=== PATIENT | female | born 1935 | race Caucasian/White ===

== ENCOUNTER 2022-02-26 00:52 | Inpatient (IN) | payer OTHER, MEDICAID ==
[~2022-02-26] VITALS: Ht 134.6 cm; Wt 76.2 kg
[~2022-02-26 00:52] MED LIST: ASPI-518 PO; LOVA20TA2 PO; MECL-159 PO; METO-385 PO; MONT-39 PO; SPIR50TA5 PO
[2022-02-26] MEDS ORDERED: MAGNESIUM 2 G PREMIX 50 ML IV STA (01:03)
[2022-02-26] MEDS ORDERED: IPRATROPIUM BROMIDE (0.02%) 0.5MG/2.5ML NEB HHN STA (01:03)
[2022-02-26] MEDS ORDERED: ALBUTEROL (0.083%) 2.5MG/3ML NEB HHN STA (01:03)
[2022-02-26] MEDS ORDERED: METHYLPREDNISOLONE SOD SUCC 125 MG/2 ML VIAL IV STA (01:03)
[2022-02-26 01:23] LABS: HEMATOCRIT 43.9 % (36.0-48.0); HEMOGLOBIN 14.6 g/dL (12.0-16.0); MEAN CORPUSCULAR VOLUME 89.8 fL (81.0-99.0); PLATELET 166 x1000/uL (130-400); RED BLOOD CELL COUNT 4.89 mill/uL (4.2-5.4); RED CELL DISTRIBUTION WIDTH 14.1 % (11.6-14.6)
[2022-02-26 01:49] LABS: CHLORIDE 108 mEq/L (98-107)
[2022-02-26] MEDS ORDERED: ONDANSETRON HCL 4MG/2ML INJ IV PRN (10:15)
[2022-02-26] MEDS ORDERED: CLONIDINE 0.1MG TABLET PO PRN (10:15)
[2022-02-26] MEDS: ASPIRIN 81MG TABLET PO SCH (10:42)
[2022-02-26] MEDS: PREDNISONE 20MG TABLET PO SCH (10:42)
[2022-02-26] MEDS: SPIRONOLACTONE 50MG TABLET PO SCH (10:43)
[2022-02-26 10:52] LABS: BG CARBOXYHEMOGLOBIN 0.4 % (0.5-1.5); BG DEOXYHEMOGLOBIN 20.2 % (0.0-5.0); BG FRACTION INSPIRED OXYGEN 21; BG HCO3 ACT 21.9 mmol/L (22.0-26.0); BG METHEMOGLOBIN 0.4 % (0.0-1.5); BG OXYGEN SATURATION 79.6 % (92.0-98.5); BG PH 7.368 (7.350-7.450); BG PO2 42.7 mmHg (75.0-100.0); BG SAMPLE SITE RIGHT RADIAL; BG TOTAL HEMOGLOBIN 14.4 g/dL (12.0-18.0); BG VENT MODE ROOM AIR
[2022-02-26] MEDS ORDERED: ENOXAPARIN 40MG/0.4ML SYR SUBCUT SCH (11:00)
[2022-02-26] MEDS ORDERED: MAGNESIUM/ALUMINUM HYDROXIDE/SIMETHICONE 30ML UDC PO PRN (11:15)
[2022-02-26] MEDS ORDERED: ACETAMINOPHEN 325MG TABLET PO PRN (11:15)
[2022-02-26] MEDS ORDERED: HYDROCODONE/ACETAMINOPHEN 5/325MG TABLET PO PRN (11:15)
[2022-02-26] MEDS ORDERED: NALOXONE HCL 0.4MG/ML VIAL IV PRN (11:45)
[2022-02-26 12:00] VITALS: BP 126/82
[2022-02-26] MEDS ORDERED: CALC-1042 MT (12:04)
[2022-02-26] MEDS ORDERED: TOPUD MT (12:04)
[2022-02-26] MEDS: DILTIAZEM HCL 60MG TABLET PO SCH ×3 (12:24→23:37)
[2022-02-26] MEDS: SODIUM CHLORIDE 0.9% INJ 3ML FLUSH IVF SCH ×2 (12:24→21:22)
[2022-02-26] MEDS: GUAIFENESIN 200MG/10ML SUGAR FREE UDC PO PRN ×3 (12:24→21:21)
[2022-02-26 12:28] LABS: BG BASE EXCESS -0.4 mmol/L (-2.0-2.0); BG CARBOXYHEMOGLOBIN 0.4 % (0.5-1.5); BG DEOXYHEMOGLOBIN 1.4 % (0.0-5.0); BG FRACTION INSPIRED OXYGEN 28; BG HCO3 ACT 23.3 mmol/L (22.0-26.0); BG METHEMOGLOBIN 0.3 % (0.0-1.5); BG OXYGEN SATURATION 98.6 % (92.0-98.5); BG OXYHEMOGLOBIN 97.9 % (94.0-97.0); BG PCO2 35.5 mmHg (35.0-45.0); BG PH 7.435 (7.350-7.450); BG SAMPLE SITE LEFT RADIAL; BG VENT MODE NASAL CANNULA
[2022-02-26] MEDS ORDERED: ENOXAPARIN 60MG/0.6ML SYR SUBCUT SCH (12:30)
[2022-02-26 13:14] VITALS: BP 126/82
[2022-02-26 16:00] VITALS: BP 109/44
[2022-02-26 16:49] LABS: HDL CHOLESTEROL 52 mg/dL (40-59); LDL CHOLESTEROL 72 mg/dL (5-100)
[2022-02-26] MEDS: MONTELUKAST SODIUM 10MG TABLET PO SCH (17:04)
[2022-02-26 18:05] LABS: CLARITY URINE CLEAR (CLEAR); COLOR URINE YELLOW (YELLOW); KETONES URINE TRACE (NEGATIVE); LEUKOCYTE ESTERASE URINE NEGATIVE (NEGATIVE); NITRITE URINE NEGATIVE (NEGATIVE); OCCULT BLOOD URINE NEGATIVE (NEGATIVE); PH URINE 5.5 (4.5-8.0); PROTEIN URINE 2+ (NEGATIVE); SPECIFIC GRAVITY URINE 1.023 (1.005-1.030); UROBILINOGEN URINE 0.2 E.U./dL (0.2-1.0)
[2022-02-26 18:19] LABS: PROTHROMBIN TIME 10.8 sec (9.6-11.0)
[2022-02-26 20:00] VITALS: BP 136/55
[2022-02-26] MEDS: ATORVASTATIN CALCIUM 10MG TABLET PO SCH (21:21)
[2022-02-26] MEDS: IPRATROPIUM/ALBUTEROL 0.5-3(2.5)MG/3ML NEB HHN PRN (22:09)
[2022-02-26] MEDS: ENOXAPARIN 100MG/ML SYR SUBCUT SCH (23:38)
[2022-02-27] VITALS: BP 147/79
[2022-02-27 04:00] VITALS: BP 126/65
[2022-02-27] MEDS: GUAIFENESIN 200MG/10ML SUGAR FREE UDC PO PRN ×2 (06:28→22:27)
[2022-02-27] MEDS: OMEPRAZOLE 20MG CAPSULE EXTENDED RELEASE PO SCH (06:29)
[2022-02-27] MEDS: DILTIAZEM HCL 60MG TABLET PO SCH (06:29)
[2022-02-27] MEDS: SODIUM CHLORIDE 0.9% INJ 3ML FLUSH IVF SCH ×3 (06:29→22:24)
[2022-02-27 07:21] LABS: BASOPHILS % 0.1 % (0.0-2.0); HEMATOCRIT. 39.9 % (36.0-48.0); HEMOGLOBIN. 13.3 g/dL (12.0-16.0); LYMPHOCYTES % 7.8 % (20.0-50.0); MEAN CORPUSCULAR HEMOGLOBIN 29.7 pg (28.0-32.0); MEAN CORPUSCULAR VOLUME 89.1 fL (81.0-99.0); MEAN PLATELET VOLUME 10.4 fl (7.4-10.4); MONOCYTES % 5.8 % (2.0-8.0); NEUTROPHILS % 86.3 % (40.0-76.0); PLATELET 153 x1000/uL (130-400); RED BLOOD CELL COUNT 4.48 mill/uL (4.2-5.4); RED CELL DISTRIBUTION WIDTH 14.3 % (11.6-14.6)
[2022-02-27 07:51] LABS: CHLORIDE 106 mEq/L (98-107)
[2022-02-27 08:00] VITALS: BP 152/63
[2022-02-27 08:07] LABS: HDL CHOLESTEROL 52 mg/dL (40-59); LDL CHOLESTEROL 80 mg/dL (5-100); PHOSPHORUS 3.7 mg/dL (2.5-4.9); T4 FREE 1.85 ng/dL (0.76-1.46)
[2022-02-27] MEDS: PREDNISONE 20MG TABLET PO SCH (08:58)
[2022-02-27] MEDS: ASPIRIN 81MG TABLET PO SCH (08:58)
[2022-02-27] MEDS: SPIRONOLACTONE 50MG TABLET PO SCH (08:58)
[2022-02-27] MEDS ORDERED: METOPROLOL SUCCINATE 50MG ER TABLET PO SCH (09:00)
[2022-02-27] MEDS: ENOXAPARIN 100MG/ML SYR SUBCUT SCH (12:33)
[2022-02-27] MEDS: DILTIAZEM HCL 90MG TABLET PO SCH ×2 (12:36→18:43)
[2022-02-27 16:00] VITALS: BP 141/76
[2022-02-27] MEDS ORDERED: DILT360C27 MT (18:29)
[2022-02-27] MEDS ORDERED: APIX5TAB MT (18:29)
[2022-02-27] MEDS ORDERED: P20 MT (18:29)
[2022-02-27] MEDS: METHYLPREDNISOLONE SOD SUCC 40 MG/ML VIAL IV SCH ×2 (18:43→22:24)
[2022-02-27] MEDS: MONTELUKAST SODIUM 10MG TABLET PO SCH (18:43)
[2022-02-27 20:00] VITALS: BP 158/69
[2022-02-27] MEDS: IPRATROPIUM/ALBUTEROL 0.5-3(2.5)MG/3ML NEB HHN PRN (20:38)
[2022-02-27] MEDS: ENOXAPARIN 80MG/0.8ML SYR SUBCUT SCH ×2 (21:00→22:23)
[2022-02-27] MEDS: ATORVASTATIN CALCIUM 10MG TABLET PO SCH (22:24)
[2022-02-28] VITALS: BP 166/87
[2022-02-28] MEDS: DILTIAZEM HCL 90MG TABLET PO SCH ×3 (00:08→17:30)
[2022-02-28 04:00] VITALS: BP 177/80
[2022-02-28] MEDS: SODIUM CHLORIDE 0.9% INJ 3ML FLUSH IVF SCH ×3 (05:43→21:21)
[2022-02-28] MEDS: METHYLPREDNISOLONE SOD SUCC 40 MG/ML VIAL IV SCH ×3 (05:43→21:21)
[2022-02-28 08:00] VITALS: BP 124/78
[2022-02-28] MEDS: OMEPRAZOLE 20MG CAPSULE EXTENDED RELEASE PO SCH (08:58)
[2022-02-28] MEDS: SPIRONOLACTONE 50MG TABLET PO SCH (08:58)
[2022-02-28] MEDS: ASPIRIN 81MG TABLET PO SCH (08:58)
[2022-02-28] MEDS: ENOXAPARIN 80MG/0.8ML SYR SUBCUT SCH (08:59)
[2022-02-28] MEDS: LOSARTAN POTASSIUM 25 MG TABLET PO SCH (11:27)
[2022-02-28 12:00] VITALS: BP 147/62
[2022-02-28 16:00] VITALS: BP 137/55
[2022-02-28] MEDS: APIXABAN 5 MG TABLET PO SCH (17:30)
[2022-02-28] MEDS: MONTELUKAST SODIUM 10MG TABLET PO SCH (17:30)
[2022-02-28 20:00] VITALS: BP 111/69
[2022-02-28 21:06] LABS: HEMATOCRIT. 40.8 % (36.0-48.0); HEMOGLOBIN. 13.5 g/dL (12.0-16.0); LYMPHOCYTES % 8.9 % (20.0-50.0); MEAN CORPUSCULAR HEMOGLOBIN 30.2 pg (28.0-32.0); MEAN CORPUSCULAR VOLUME 91.4 fL (81.0-99.0); MEAN PLATELET VOLUME 10.5 fl (7.4-10.4); MONOCYTES % 4.1 % (2.0-8.0); PLATELET 168 x1000/uL (130-400); RED BLOOD CELL COUNT 4.47 mill/uL (4.2-5.4); RED CELL DISTRIBUTION WIDTH 14.9 % (11.6-14.6)
[2022-02-28 21:20] LABS: CHLORIDE 106 mEq/L (98-107)
[2022-02-28] MEDS: ATORVASTATIN CALCIUM 10MG TABLET PO SCH (21:21)
[2022-02-28 21:35] LABS: PHOSPHORUS 2.4 mg/dL (2.5-4.9)
[2022-03-01] VITALS: BP 129/56
[2022-03-01] MEDS: GUAIFENESIN 200MG/10ML SUGAR FREE UDC PO PRN ×2 (03:13→21:08)
[2022-03-01 04:00] VITALS: BP 130/54
[2022-03-01] MEDS: SODIUM CHLORIDE 0.9% INJ 3ML FLUSH IVF SCH ×3 (06:16→21:02)
[2022-03-01] MEDS: DILTIAZEM HCL 90MG TABLET PO SCH ×4 (06:16→17:23)
[2022-03-01] MEDS: METHYLPREDNISOLONE SOD SUCC 40 MG/ML VIAL IV SCH ×3 (06:16→21:01)
[2022-03-01 07:23] VITALS: BP 153/58
[2022-03-01 07:37] LABS: BASOPHILS % 0.1 % (0.0-2.0); HEMATOCRIT. 37.7 % (36.0-48.0); HEMOGLOBIN. 12.8 g/dL (12.0-16.0); MEAN CORPUSCULAR HEMOGLOBIN 30.3 pg (28.0-32.0); MEAN CORPUSCULAR VOLUME 89.1 fL (81.0-99.0); MONOCYTES % 4.3 % (2.0-8.0); NEUTROPHILS % 84.6 % (40.0-76.0); PLATELET 139 x1000/uL (130-400); RED BLOOD CELL COUNT 4.23 mill/uL (4.2-5.4); RED CELL DISTRIBUTION WIDTH 14.5 % (11.6-14.6)
[2022-03-01 07:43] LABS: CHLORIDE 107 mEq/L (98-107)
[2022-03-01] MEDS: ASPIRIN 81MG TABLET PO SCH (07:59)
[2022-03-01] MEDS: LOSARTAN POTASSIUM 25 MG TABLET PO SCH (07:59)
[2022-03-01] MEDS: SPIRONOLACTONE 50MG TABLET PO SCH (08:00)
[2022-03-01] MEDS: APIXABAN 5 MG TABLET PO SCH ×2 (08:00→17:29)
[2022-03-01] MEDS: FAMOTIDINE 20MG TABLET PO SCH (08:00)
[2022-03-01 12:07] VITALS: BP 121/45
[2022-03-01 16:00] VITALS: BP 136/45
[2022-03-01] MEDS: MONTELUKAST SODIUM 10MG TABLET PO SCH (17:29)
[2022-03-01 20:00] VITALS: BP 176/94
[2022-03-01] MEDS: ATORVASTATIN CALCIUM 10MG TABLET PO SCH (21:01)
[2022-03-02] VITALS: BP 151/71
[2022-03-02] MEDS: DILTIAZEM HCL 90MG TABLET PO SCH ×2 (00:22→05:23)
[2022-03-02 04:00] VITALS: BP 129/47
[2022-03-02] MEDS: METHYLPREDNISOLONE SOD SUCC 40 MG/ML VIAL IV SCH (05:22)
[2022-03-02] MEDS: SODIUM CHLORIDE 0.9% INJ 3ML FLUSH IVF SCH (05:22)
[2022-03-02] MEDS: FAMOTIDINE 20MG TABLET PO SCH ×2 (05:23→08:39)
[2022-03-02 08:02] VITALS: BP 143/58
[2022-03-02] MEDS: SPIRONOLACTONE 50MG TABLET PO SCH (08:39)
[2022-03-02] MEDS: LOSARTAN POTASSIUM 25 MG TABLET PO SCH (08:39)
[2022-03-02] MEDS: ASPIRIN 81MG TABLET PO SCH (08:39)
[2022-03-02] MEDS: APIXABAN 5 MG TABLET PO SCH (08:39)
[2022-03-02 09:07] VITALS: BP 143/58
== END 2022-03-02 10:55 | disposition home or self-care (01) | DRG 189 ==
LOC: ER 00:52 → 8WST 04:17 → ENRESERV 07:13 → 8WST 02-28 08:17
PROVIDERS: ADMIT Internal Medicine Pulmonary Disease; ATTEND Internal Medicine Pulmonary Disease
DX: J96.01 Acute respiratory failure with hypoxia (principal); I21.4 Non-ST elevation (NSTEMI) myocardial infarction; J44.1 Chronic obstructive pulmonary disease with (acute) exacerbation; J45.901 Unspecified asthma with (acute) exacerbation; R04.2 Hemoptysis; Z68.41 Body mass index [BMI] 40.0-44.9, adult; Z20.822 Contact with and (suspected) exposure to COVID-19; I48.91 Unspecified atrial fibrillation; E05.90 Thyrotoxicosis, unspecified without thyrotoxic crisis or storm; E66.01 Morbid (severe) obesity due to excess calories; E78.00 Pure hypercholesterolemia, unspecified; I11.9 Hypertensive heart disease without heart failure; I70.0 Atherosclerosis of aorta; R73.9 Hyperglycemia, unspecified; R59.9 Enlarged lymph nodes, unspecified; M79.89 Other specified soft tissue disorders
CPT/HCPCS: 36415; 36600; 71045; 71250; 80048; 80053; 80061; 80076; 81003; 82375; 82805; 83036; 83520; 83735; 84100; 84439; 84443; 84481; 84484; 85025; 85027; 87426; 93005; 93306; 93970; 94640; 97162; 99291; C9803; J1650; J2920; J2930; J3475; J7512